=== PATIENT | female | born 1975 | race Caucasian/White ===

== ENCOUNTER 2017-03-13 16:22 | Emergency (ER) | payer MEDICAID ==
[~2017-03-13] VITALS: Ht 167.6 cm; Wt 53.5 kg
[2017-03-13 16:41] VITALS: BP 146/95
[2017-03-13] MEDS ORDERED: KETOROLAC TROMETH 60MG/2ML VIAL IM ONE (18:00)
== END 2017-03-13 18:17 | disposition home or self-care (01) ==
LOC: ER 16:29
DX: G44.209 Tension-type headache, unspecified, not intractable (principal); F17.210 Nicotine dependence, cigarettes, uncomplicated; R42 Dizziness and giddiness
CPT/HCPCS: 70450; 96372; 99284; J1885

== ENCOUNTER 2017-03-14 16:27 | Emergency (ER) | payer MEDICAID ==
[~2017-03-14] VITALS: Ht 167.6 cm; Wt 53.5 kg
[2017-03-14 16:49] VITALS: BP 154/101
[2017-03-14 17:27] LABS: Basophils # (auto) 0 uL; Basophils % (auto) 0.5 % (0.0-2.0); Eosinophils # (auto) 0.1 uL; Eosinophils % (auto) 0.6 % (0.0-7.0); Hematocrit 40.5 % (36.0-46.0); Lymphocytes # (auto) 2.4 uL; Lymphocytes % (auto) 28.5 % (10.0-50.0); Mean Corpuscular Hemoglobin 31.3 pg (28.0-32.0); Mean Corpuscular Hgb Conc. 34.5 g/dL (32.0-36.0); Mean Corpuscular Volume 90.6 fL (80.0-100.0); Mean Platelet Volume 8.3 fL (6.9-10.8); Monocytes # (auto) 0.5 uL; Monocytes % (auto) 6.3 % (0.0-12.0); Neutrophils # (auto) 5.4 uL; Neutrophils % (auto) 64.1 % (37.0-80.0); Platelet Count (auto) 239 10^3/uL (140-450); Red Cell Distribution Width 12.7 % (11.8-14.3); White Blood Cell 8.5 10^3/uL (4.4-10.8)
[2017-03-14 17:31] LABS: Urine Bilirubin Negative (Negative); Urine Blood Negative /uL (Negative); Urine Color Yellow (Yellow); Urine Glucose Normal (Normal); Urine Ketone Negative (Negative); Urine Mucus FEW (None Seen); Urine Nitrite Negative (Negative); Urine RBC <1 /hpf (0 - 4); Urine Squamous Epithelial Cell FEW /hpf (<5); Urine pH 5.5 (5.0-8.0)
[2017-03-14 17:49] LABS: Albumin 4.2 g/dL (3.4-5.0); BUN/Creatinine Ratio 14.3; Calcium 8.8 mg/dL (8.5-10.1); Potassium 3.6 mmol/L (3.5-5.1)
[2017-03-14 17:52] LABS: Bilirubin, Total 0.4 mg/dL (0.2-1.0); Total Protein 7.4 g/dL (6.4-8.2)
== END 2017-03-15 03:09 | disposition left against medical advice (07) ==
LOC: ER 16:42
DX: R10.30 Lower abdominal pain, unspecified (principal); N89.8 Other specified noninflammatory disorders of vagina; Z53.21 Procedure and treatment not carried out due to patient leaving prior to being seen by health care provider
CPT/HCPCS: 36415; 80053; 81001; 81025; 82150; 83690; 85025

== ENCOUNTER 2018-08-04 09:52 | Emergency (ER) | payer MEDICAID ==
[~2018-08-04] VITALS: Ht 167.6 cm; Wt 49.9 kg
[2018-08-04 10:43] VITALS: BP 137/73
[2018-08-04 10:56] LABS: Urine Bacteria NONE SEEN /hpf (None Seen); Urine Blood Negative /uL (Negative); Urine Specific Gravity 1.004 (1.001-1.035); Urine WBC <1 /hpf (0 - 5)
== END 2018-08-04 12:12 | disposition home or self-care (01) ==
LOC: ER 09:52
DX: R10.30 Lower abdominal pain, unspecified (principal); R11.2 Nausea with vomiting, unspecified; F12.10 Cannabis abuse, uncomplicated; F17.210 Nicotine dependence, cigarettes, uncomplicated; Z32.02 Encounter for pregnancy test, result negative
CPT/HCPCS: 36415; 81001; 81025; 84702

== ENCOUNTER → 2019-12-10 | Emergency (ER) | payer MEDICAID ==
[~2019-12-10] VITALS: Ht 167.6 cm; Wt 49.9 kg
[2019-12-10 13:25] VITALS: BP 128/70
== END | disposition home or self-care (01) ==
LOC: EDUNIT# 11:39 → ER 11:40 → EDBD 11:40
DX: N39.0 Urinary tract infection, site not specified (principal); F15.10 Other stimulant abuse, uncomplicated; Z20.828 Contact with and (suspected) exposure to other viral communicable diseases
CPT/HCPCS: 36415; 71045; 81025; 87426

== ENCOUNTER 2021-07-04 00:09 | Emergency (ER) | payer MEDICAID ==
[~2021-07-04] VITALS: Ht 167.6 cm; Wt 65.8 kg
[2021-07-04 01:11] LABS: Urine Bacteria FEW /hpf (None Seen); Urine Blood Negative /uL (Negative); Urine Mucus FEW (None Seen); Urine Specific Gravity 1.022 (1.001-1.035); Urine WBC 31 /hpf (0 - 5)
[2021-07-04 01:18] LABS: Amphetamine Screen, Urine NEGATIVE (NEGATIVE); Barbiturate Scree,Urine NEGATIVE (NEGATIVE); Benzodiazephine Screen, Urine NEGATIVE (NEGATIVE); Cannabinoid Screen, Urine POSITIVE (NEGATIVE); Cocaine Screen, Urine NEGATIVE (NEGATIVE); Opiate Scree,Urine NEGATIVE (NEGATIVE); Phencyclidine Screen, Urine NEGATIVE (NEGATIVE)
[2021-07-04] MEDS ORDERED: ONDANSETRON ODT 4 MG TAB PO ONE (02:15)
[2021-07-04] MEDS ORDERED: PERCOT PO (04:41)
[2021-07-04] MEDS ORDERED: NITR-87 PO (04:41)
[2021-07-04] MEDS ORDERED: HYDROmorphone HCL 2 MG/ML VL IM ONE (04:45)
[2021-07-04] MEDS ORDERED: cefTRIAXone W LIDOCAINE 1 GM IM IM ONE (04:45)
[2021-07-04 05:00] VITALS: BP 104/59
[2021-07-04] MEDS ORDERED: cefTRIAXone SOD 1,000 MG VL ONE (05:10)
[2021-07-04] MEDS ORDERED: ONDA-144 PO (05:29)
== END 2021-07-04 05:23 | disposition home or self-care (01) ==
LOC: EDBD 00:09 → ER 00:09
DX: N39.0 Urinary tract infection, site not specified (principal); Z59.00 Homelessness unspecified; Z88.5 Allergy status to narcotic agent
CPT/HCPCS: 74176; 80307; 81001; 96372; 99284; J0696; Q0162